=== PATIENT | male | born 1960 | race Two or more races ===

== ENCOUNTER 2021-09-08 12:34 | Outpatient (CLI) | payer OTHER ==
[~2021-09-08 12:34] MED LIST: PEPTO-BISM262 MG/15 PO
== END 2021-09-08 12:49 | disposition home or self-care (01) ==
LOC: PPH VACUNA 12:34
PROVIDERS: ATTEND Emergency Medicine Pediatric Emergency Medicine
DX: Z23 Encounter for immunization (principal)

== ENCOUNTER 2022-01-26 13:34 | Outpatient (CLI) | payer OTHER | END 2022-01-26 13:44 | disposition home or self-care (01) | LOC: PPH VACUNA 13:34 | PROVIDERS: ATTEND Emergency Medicine Pediatric Emergency Medicine | DX: Z23 Encounter for immunization (principal) ==

== ENCOUNTER 2022-02-09 15:00 | Outpatient (CLI) | payer OTHER | END 2022-02-09 15:10 | disposition home or self-care (01) | LOC: PPH VACUNA 15:00 | PROVIDERS: ATTEND Emergency Medicine Pediatric Emergency Medicine | DX: Z23 Encounter for immunization (principal) ==

== ENCOUNTER 2022-07-13 08:18 | Outpatient (CLI) | payer OTHER | END 2022-07-13 08:31 | disposition home or self-care (01) | LOC: TOM 08:18 | PROVIDERS: ATTEND Internal Medicine Gastroenterology | DX: R10.11 Right upper quadrant pain (principal); R10.31 Right lower quadrant pain ==

== ENCOUNTER → 2024-05-08 | Emergency (ER) | payer OTHER ==
[~2024-05-08] VITALS: Ht 172.7 cm; Wt 68.0 kg
[~2024-05-08] MED LIST changes: +COZAAR25 MG; +HYDROCHLOROTH12.5 MG; +LIDOCAINE HCL 4% Topic SOLUTION ONE
== END | disposition left against medical advice (07) ==
LOC: ER 22:03
DX: Z53.21 Procedure and treatment not carried out due to patient leaving prior to being seen by health care provider (principal)

== ENCOUNTER 2024-05-09 06:08 | Emergency (ER) | payer OTHER ==
[~2024-05-09] VITALS: Ht 170.2 cm; Wt 68.0 kg
[~2024-05-09 06:08] MED LIST changes: -COZAAR25 MG; -LIDOCAINE HCL 4% Topic SOLUTION ONE
[2024-05-09] MEDS ORDERED: COZAAR25 MG (06:17)
[2024-05-09] MEDS ORDERED: LIDOCAINE HCL 4% Topic SOLUTION TOP STA (06:55)
== END 2024-05-09 07:22 | disposition home or self-care (01) ==
LOC: ER 06:08
DX: H61.22 Impacted cerumen, left ear (principal)